=== PATIENT | male | born 1950 | race African-American/Black ===

== ENCOUNTER 2019-08-16 12:54 | Emergency (ER) | payer MEDICAID, MEDICARE ==
[~2019-08-16] VITALS: Ht 188 cm; Wt 77.0 kg
[2019-08-16 14:27] VITALS: BP 141/85
== END 2019-08-16 15:27 | disposition home or self-care (01) ==
LOC: ER 12:54
DX: B07.0 Plantar wart (principal); M79.674 Pain in right toe(s); I10 Essential (primary) hypertension; D64.9 Anemia, unspecified
CPT/HCPCS: 99282

== ENCOUNTER 2025-07-07 10:10 | Inpatient (IN) | payer MEDICARE, MEDICAID ==
[~2025-07-07] VITALS: Ht 180.3 cm; Wt 64.6 kg
[2025-07-07 10:25] VITALS: O2SAT 99
[2025-07-07 11:02] LABS: BASOPHILS % 0.3 % (0.0-2.0); EOSINOPHILS % 0.2 % (0.0-5.0); HEMATOCRIT. 45.0 % (42.0-52.0); HEMOGLOBIN. 14.9 g/dL (14.0-18.0); LYMPHOCYTES % 12.2 % (20.0-50.0); MEAN PLATELET VOLUME 7.6 fl (7.4-10.4); MONOCYTES % 5.8 % (2.0-8.0); NEUTROPHILS % 81.5 % (40.0-76.0); PLATELET 257 x1000/uL (130-400); RED BLOOD CELL COUNT 5.09 mill/uL (4.7-6.1); RED CELL DISTRIBUTION WIDTH 13.9 % (11.6-14.6)
[2025-07-07] MEDS: IOHEXOL-350 100 ML BOTTLE ONE (11:11)
[2025-07-07 11:16] LABS: CREATININE 0.9 mg/dL (0.6-1.3); UREA NITROGEN BLOOD 10 mg/dL (9-23)
[2025-07-07 11:17] LABS: ETHANOL BLOOD < 10 mg/dL (<10); INR 1.0; PROTEIN TOTAL 7.8 g/dL (6.0-8.3)
[2025-07-07 11:18] LABS: ASPARTATE AMINOTRANSFERASE 25 IU/L (<34); BILIRUBIN DIRECT 0.1 mg/dL (<=3.0); BILIRUBIN TOTAL 0.4 mg/dL (0.1-1.0)
[2025-07-07 11:24] LABS: TROPONIN I HIGH SENSITIVITY 4 ng/L (3.0-53)
[2025-07-07] MEDS: ASPIRIN 325MG EC TABLET PO ONE (11:42)
[2025-07-07 12:30] LABS: CLARITY URINE CLEAR (CLEAR); COLOR URINE YELLOW (YELLOW); GLUCOSE URINE NEGATIVE (NEGATIVE); KETONES URINE NEGATIVE (NEGATIVE); LEUKOCYTE ESTERASE URINE NEGATIVE (NEGATIVE); NITRITE URINE NEGATIVE (NEGATIVE); OCCULT BLOOD URINE NEGATIVE (NEGATIVE); PH URINE 7.5 (4.5-8.0); PROTEIN URINE NEGATIVE (NEGATIVE); SPECIFIC GRAVITY URINE 1.026 (1.005-1.030); UROBILINOGEN URINE 0.2 E.U./dL (0.2-1.0)
[2025-07-07 12:45] LABS: *AMPHETAMINES SCREEN URINE NEGATIVE (NEGATIVE); *BARBITURATES SCREEN URINE NEGATIVE (NEGATIVE); *BENZODIAZEPINES SCREEN URINE NEGATIVE (NEGATIVE); *COCAINE SCREEN URINE NEGATIVE (NEGATIVE); CANNABINOID URINE SCREEN NEGATIVE (NEGATIVE); ECSTASY MDMA SCREEN URINE NEGATIVE (NEGATIVE); METHADONE URINE SCREEN NEGATIVE (NEGATIVE); OPIATES URINE SCREEN NEGATIVE (NEGATIVE); PHENCYCLIDINE URINE SCREEN NEGATIVE (NEGATIVE)
[2025-07-07] MEDS ORDERED: LORA10TA7 PO (17:50)
[2025-07-07] MEDS ORDERED: LOSA100T33 PO (17:50)
[2025-07-07] MEDS ORDERED: AMLO10TA80 PO (17:50)
[2025-07-07 18:00] VITALS: BP 144/79; PULSE 79; RESP 18; TEMP 36.5; O2SAT 99
[2025-07-07 19:16] VITALS: BP 144/79; PULSE 84; RESP 18; TEMP 36.5292
[2025-07-07] MEDS ORDERED: IPRATROPIUM/ALBUTEROL 0.5-3(2.5)MG/3ML NEB HHN PRN (19:30)
[2025-07-07] MEDS ORDERED: ONDANSETRON HCL 4MG/2ML INJ IV PRN (19:30)
[2025-07-07] MEDS ORDERED: DOCUSATE SODIUM 100MG CAPSULE PO PRN (19:30)
[2025-07-07] MEDS: ACETAMINOPHEN 325MG TABLET PO PRN (19:34)
[2025-07-07 20:00] VITALS: BP 136/65; PULSE 80; RESP 20; TEMP 35.6; O2SAT 95
[2025-07-07] MEDS: ATORVASTATIN CALCIUM 40MG TABLET PO SCH (21:00)
[2025-07-08] VITALS: BP 124/68; PULSE 75; RESP 18; TEMP 36.7; O2SAT 95
[2025-07-08 04:00] VITALS: BP 122/72; PULSE 68; RESP 20; TEMP 36.7; O2SAT 98
[2025-07-08 06:35] LABS: BASOPHILS % 0.3 % (0.0-2.0); EOSINOPHILS % 0.7 % (0.0-5.0); HEMATOCRIT. 43.9 % (42.0-52.0); HEMOGLOBIN. 14.1 g/dL (14.0-18.0); LYMPHOCYTES % 17.0 % (20.0-50.0); MEAN PLATELET VOLUME 7.8 fl (7.4-10.4); MONOCYTES % 9.0 % (2.0-8.0); NEUTROPHILS % 73.0 % (40.0-76.0); PLATELET 252 x1000/uL (130-400); RED BLOOD CELL COUNT 4.94 mill/uL (4.7-6.1); RED CELL DISTRIBUTION WIDTH 14.0 % (11.6-14.6)
[2025-07-08 06:46] LABS: CREATININE 0.8 mg/dL (0.6-1.3); TRIGLYCERIDE 74 mg/dL (0-150); UREA NITROGEN BLOOD 9 mg/dL (9-23)
[2025-07-08 06:47] LABS: LDL CHOLESTEROL 86 mg/dL (5-100)
[2025-07-08 08:00] VITALS: BP 130/87; PULSE 64; RESP 18; TEMP 36.6; O2SAT 99
[2025-07-08] MEDS: CLOPIDOGREL 75MG TABLET PO SCH (08:26)
[2025-07-08] MEDS: ASPIRIN 81MG EC TABLET PO SCH (08:27)
[2025-07-08] MEDS: ENOXAPARIN 40MG/0.4ML SYR SUBCUT SCH (08:28)
[2025-07-08 12:00] VITALS: BP 150/88; PULSE 67; RESP 18; TEMP 36.6; O2SAT 99
[2025-07-08 16:00] VITALS: BP 147/84; PULSE 61; RESP 18; TEMP 36.6; O2SAT 98
[2025-07-08 20:00] VITALS: BP 122/90; PULSE 68; RESP 18; TEMP 36.4; O2SAT 99
[2025-07-08] MEDS: POTASSIUM CHLORIDE 20MEQ TABLET SR PO SCH (21:00)
[2025-07-09] VITALS: BP 19/71; PULSE 65; RESP 17; TEMP 36.6; O2SAT 98
[2025-07-09 04:00] VITALS: BP 115/66; PULSE 70; RESP 18; TEMP 36.7; O2SAT 99
[2025-07-09 06:34] LABS: CREATININE 1.1 mg/dL (0.6-1.3); UREA NITROGEN BLOOD 11 mg/dL (9-23)
[2025-07-09 06:45] LABS: BASOPHILS % 0.4 % (0.0-2.0); EOSINOPHILS % 0.8 % (0.0-5.0); HEMATOCRIT. 45.2 % (42.0-52.0); HEMOGLOBIN. 15.1 g/dL (14.0-18.0); LYMPHOCYTES % 24.5 % (20.0-50.0); MEAN PLATELET VOLUME 7.8 fl (7.4-10.4); MONOCYTES % 7.8 % (2.0-8.0); NEUTROPHILS % 66.5 % (40.0-76.0); PLATELET 272 x1000/uL (130-400); RED BLOOD CELL COUNT 5.13 mill/uL (4.7-6.1); RED CELL DISTRIBUTION WIDTH 14.5 % (11.6-14.6)
[2025-07-09 08:00] VITALS: BP 142/78; PULSE 68; RESP 18; TEMP 36.4; O2SAT 97
[2025-07-09] MEDS ORDERED: CLOP-31 PO (10:13)
[2025-07-09] MEDS ORDERED: ASPI-1406 PO (10:13)
[2025-07-09] MEDS ORDERED: LIP40 PO (10:13)
[2025-07-09 12:00] VITALS: BP 145/80; PULSE 68; RESP 18; TEMP 36.5; O2SAT 100
[2025-07-09 16:00] VITALS: BP 145/62; PULSE 61; RESP 18; TEMP 36.5; O2SAT 99
[2025-07-09 17:10] VITALS: BP 128/91; PULSE 77; RESP 18; TEMP 97.6
== END 2025-07-09 18:05 | disposition home health service (06) | DRG 66 ==
LOC: ER 10:10 → 8WST 14:22 → EDBEDREQ 14:24 → EDBEDREQTM 14:24
PROVIDERS: ADMIT Internal Medicine; ATTEND Internal Medicine
DX: I63.89 Other cerebral infarction (principal); E87.6 Hypokalemia; I10 Essential (primary) hypertension; R29.701 NIHSS score 1; Z74.09 Other reduced mobility; Z79.82 Long term (current) use of aspirin; Z86.73 Personal history of transient ischemic attack (TIA), and cerebral infarction without residual deficits; Z87.891 Personal history of nicotine dependence; Z88.0 Allergy status to penicillin
CPT/HCPCS: 36415; 70496; 70498; 70551; 71045; 80048; 80061; 80076; 80305; 80320; 81003; 83036; 84484; 85025; 92610; 93005; 93306; 97162; 97166; 99291; J1650; Q9967; G0480